=== PATIENT | male | born 1955 | race Caucasian/White ===

== ENCOUNTER → 2023-08-17 | Outpatient (REF) | payer MEDICARE ==
[2023-08-17 18:00] LABS: HEMOGLOBIN A1c 5.6 % (4.0-6.0)
[2023-08-17 18:08] LABS: ALBUMIN 4.2 G/DL (3.2-5.2); ALKALINE PHOSPHATASE 41 U/L (46-116); ALT/SGPT 39 U/L (7.0-40); AST/SGOT 29 U/L (<34); BILIRUBIN,TOTAL 0.9 MG/DL (0.3-1.2); BLOOD UREA NITROGEN 32 MG/DL (9-23); CALCIUM LEVEL 9.6 MG/DL (8.3-10.6); CARBON DIOXIDE LEVEL 29 MMOL/L (20-31); CHLORIDE LEVEL 101 MMOL/L (98-107); CHOLESTEROL LEVEL 238 MG/DL (<200); CHOLESTEROL RISK RATIO 4.95 (<5); CREATININE FOR GFR 0.97 MG/DL (0.70-1.30); GLOMERULAR FILTRATION RATE > 60.0 (>42); GLUCOSE, FASTING 100 MG/DL (74-106); LDL CHOLESTEROL 162.4 MG/DL (<100); POTASSIUM SERUM 4.4 MMOL/L (3.5-5.1); SODIUM LEVEL 139 MMOL/L (136-145); TOTAL PROTEIN 6.8 G/DL (5.7-8.2); TRIGLYCERIDES LEVEL 138 MG/DL (<150)
[2023-08-17 18:10] LABS: HEMATOCRIT 45.5 % (42.0-52.0); HEMOGLOBIN 15.4 g/dl (13.5-17.5); MEAN CORPUSCULAR HEMOGLOBIN 31.8 pg (27.0-33.0); MEAN CORPUSCULAR HGB CONC 33.8 g/dl (32.0-36.5); MEAN CORPUSCULAR VOLUME 93.8 fl (80.0-96.0); PLATELET COUNT, AUTOMATED 231 10^3/uL (150-450); RED BLOOD COUNT 4.85 10^6/uL (4.30-6.10); WHITE BLOOD COUNT 5.7 10^3/uL (4.0-10.0)
[2023-08-17 18:11] LABS: TOTAL 25(OH) VITAMIN D 16.3 NG/ML (20.0-100.0)
[2023-08-17 18:12] LABS: THYROID STIMULATING HORMONE 0.605 uIU/ML (0.55-4.78)
== END ==
LOC: M LAB REF 16:19
PROVIDERS: ATTEND Nurse Practitioner Family
DX: E55.9 Vitamin D deficiency, unspecified (principal); Z12.5 Encounter for screening for malignant neoplasm of prostate; E11.8 Type 2 diabetes mellitus with unspecified complications
CPT/HCPCS: 80053; 80061; 82306; 83036; 84443; 85027; G0103

== ENCOUNTER → 2023-09-07 | Outpatient (REF) | payer MEDICARE ==
[2023-09-07 12:47] LABS: CREATININE, URINE 21.6 MG/DL; CREATININE,RANDOM URINE 21.6 MG/DL; MALB URINE SIEMENS < 3.0 MG/L; MAU/CREAT RATIO 13.8 MCG/MG (0.0-30.0)
== END ==
LOC: M LAB REF 11:37
PROVIDERS: ATTEND Nurse Practitioner Family
DX: E11.8 Type 2 diabetes mellitus with unspecified complications (principal)

== ENCOUNTER → 2024-03-16 | Outpatient (REF) | payer MEDICARE ==
[2024-03-16 15:07] LABS: BLOOD UREA NITROGEN 31 MG/DL (9-23); CALCIUM LEVEL 9.3 MG/DL (8.3-10.6); CARBON DIOXIDE LEVEL 27 MMOL/L (20-31); CHLORIDE LEVEL 103 MMOL/L (98-107); CREATININE FOR GFR 1.02 MG/DL (0.70-1.30); GLOMERULAR FILTRATION RATE > 60.0 (>42); GLUCOSE, FASTING 138 MG/DL (74-106); POTASSIUM SERUM 3.8 MMOL/L (3.5-5.1); SODIUM LEVEL 138 MMOL/L (136-145)
[2024-03-16 15:25] LABS: HEMOGLOBIN A1c 6.6 % (4.0-6.0)
== END ==
LOC: M LAB REF 12:54
PROVIDERS: ATTEND Nurse Practitioner Family
DX: I10 Essential (primary) hypertension (principal); E11.8 Type 2 diabetes mellitus with unspecified complications

== ENCOUNTER → 2024-03-29 | Outpatient (CLI) | payer MEDICARE ==
[2024-03-29 12:26] LABS: BLOOD UREA NITROGEN 26 MG/DL (9-23); CALCIUM LEVEL 9.7 MG/DL (8.3-10.6); CARBON DIOXIDE LEVEL 27 MMOL/L (20-31); CHLORIDE LEVEL 106 MMOL/L (98-107); CREATININE FOR GFR 1.03 MG/DL (0.70-1.30); GLOMERULAR FILTRATION RATE > 60.0 (>42); GLUCOSE, FASTING 137 MG/DL (74-106); POTASSIUM SERUM 3.8 MMOL/L (3.5-5.1); SODIUM LEVEL 137 MMOL/L (136-145)
== END ==
LOC: M RAD 10:31
PROVIDERS: ATTEND Nurse Practitioner Family
DX: R60.0 Localized edema (principal)

== ENCOUNTER → 2024-05-26 | Outpatient (REF) | payer MEDICARE ==
[2024-05-26 18:26] LABS: HEMOGLOBIN A1c 6.3 % (4.0-6.0)
[2024-05-26 18:47] LABS: BLOOD UREA NITROGEN 26 MG/DL (9-23); CALCIUM LEVEL 9.5 MG/DL (8.3-10.6); CARBON DIOXIDE LEVEL 27 MMOL/L (20-31); CHLORIDE LEVEL 103 MMOL/L (98-107); GLOMERULAR FILTRATION RATE > 60.0 (>42); GLUCOSE, FASTING 113 MG/DL (74-106); POTASSIUM SERUM 4.2 MMOL/L (3.5-5.1); SODIUM LEVEL 137 MMOL/L (136-145)
== END ==
LOC: M LAB REF 16:11
PROVIDERS: ATTEND Nurse Practitioner Family
DX: E11.8 Type 2 diabetes mellitus with unspecified complications (principal); I10 Essential (primary) hypertension

== ENCOUNTER 2024-08-09 07:00 | Day surgery (SDC) | payer MEDICARE ==
[~2024-08-09] VITALS: Ht 182.9 cm; Wt 112.5 kg
[~2024-08-09 07:00] MED LIST: AMLO1TAB24 PO; FENO160T10 PO; GLIP10TA15 PO; LOSA100T5 PO; NS 250 ML IV ONE; PIOG1TAB55 PO; ROSU5TAB40 PO; SOTA120T PO; VITA200032 PO; XARE20TA PO
[2024-08-09] MEDS ORDERED: propofoL 200 MG/20 ML VIAL As Ordered ONE (08:05)
[2024-08-09] MEDS ORDERED: GLYCOPYRROLATE INJ 0.2 MG/ML 2 ML VIAL As Ordered ONE (08:05)
[2024-08-09] MEDS ORDERED: ePHEDrine SULFATE 25 MG/5 ML(5MG/ML) SYRINGE As Ordered ONE (08:12)
[2024-08-09 08:22] VITALS: TEMP 97.2
[2024-08-09 08:39] VITALS: BP 133/62; O2SAT 94
== END 2024-08-09 08:54 | disposition home or self-care (01) ==
LOC: M OPP 07:00
PROVIDERS: ATTEND Surgery
DX: Z12.11 Encounter for screening for malignant neoplasm of colon (principal); Z12.12 Encounter for screening for malignant neoplasm of rectum; D12.3 Benign neoplasm of transverse colon; K57.30 Diverticulosis of large intestine without perforation or abscess without bleeding; Z87.11 Personal history of peptic ulcer disease; I48.91 Unspecified atrial fibrillation; E11.9 Type 2 diabetes mellitus without complications; I10 Essential (primary) hypertension; E78.00 Pure hypercholesterolemia, unspecified; Z79.899 Other long term (current) drug therapy; Z79.01 Long term (current) use of anticoagulants; Z88.2 Allergy status to sulfonamides; Z88.6 Allergy status to analgesic agent; Z90.89 Acquired absence of other organs
CPT/HCPCS: 45385; 88305; J1596

== ENCOUNTER → 2024-09-12 | Outpatient (REF) | payer MEDICARE ==
[~2024-09-12] MED LIST changes: -NS 250 ML IV ONE; -ROSU5TAB40 PO; +ROSU5TAB49 PO
[2024-09-12 13:40] LABS: HEMOGLOBIN A1c 6.9 % (4.0-6.0)
== END ==
LOC: M LAB REF 12:32
PROVIDERS: ATTEND Nurse Practitioner Family
DX: E11.8 Type 2 diabetes mellitus with unspecified complications (principal)

== ENCOUNTER → 2024-09-28 | Outpatient (REF) | payer MEDICARE ==
[2024-09-28 14:08] LABS: HEMATOCRIT 45.1 % (42.0-52.0); HEMOGLOBIN 15.2 g/dl (13.5-17.5); MEAN CORPUSCULAR HEMOGLOBIN 31.1 pg (27.0-33.0); MEAN CORPUSCULAR HGB CONC 33.7 g/dl (32.0-36.5); MEAN CORPUSCULAR VOLUME 92.2 fl (80.0-96.0); PLATELET COUNT, AUTOMATED 229 10^3/uL (150-450); RED BLOOD COUNT 4.89 10^6/uL (4.30-6.10); WHITE BLOOD COUNT 5.9 10^3/uL (4.0-10.0)
[2024-09-28 14:09] LABS: ALBUMIN 3.7 G/DL (3.2-5.2); ALKALINE PHOSPHATASE 44 U/L (40-129); ALT/SGPT 34 U/L (7.0-40); AST/SGOT 27 U/L (<34); BILIRUBIN,DIRECT 0.2 MG/DL (<0.4); BILIRUBIN,TOTAL 0.5 MG/DL (0.3-1.2); BLOOD UREA NITROGEN 34 MG/DL (9-23); CALCIUM LEVEL 9.7 MG/DL (8.3-10.6); CARBON DIOXIDE LEVEL 29 MMOL/L (20-31); CHLORIDE LEVEL 101 MMOL/L (98-107); CHOLESTEROL LEVEL 180 MG/DL (<200); CREATININE FOR GFR 1.07 MG/DL (0.70-1.30); GLOMERULAR FILTRATION RATE > 60.0 (>42); GLUCOSE, FASTING 120 MG/DL (74-106); HDL CHOLESTEROL 42.8 MG/DL (>40); LDL CHOLESTEROL 114.6 MG/DL (<100); NON-HDL-C 137.2 MG/DL; POTASSIUM SERUM 4.1 MMOL/L (3.5-5.1); PROSTATIC SPECIFIC AG MONITOR 0.45 NG/ML (< 4.00); SODIUM LEVEL 140 MMOL/L (136-145); TOTAL PROTEIN 6.6 G/DL (5.7-8.2); TRIGLYCERIDES LEVEL 113 MG/DL (<150)
[2024-09-28 14:11] LABS: THYROID STIMULATING HORMONE 0.491 uIU/ML (0.55-4.78)
== END ==
LOC: M LAB REF 12:50
PROVIDERS: ATTEND Nurse Practitioner Family
DX: E11.8 Type 2 diabetes mellitus with unspecified complications (principal); E78.5 Hyperlipidemia, unspecified; E66.9 Obesity, unspecified; Z12.5 Encounter for screening for malignant neoplasm of prostate; I10 Essential (primary) hypertension

== ENCOUNTER → 2024-11-29 | Outpatient (REF) | payer MEDICARE | LOC: M LAB REF 13:18 | PROVIDERS: ATTEND Nurse Practitioner Family | DX: R89.1 Abnormal level of hormones in specimens from other organs, systems and tissues (principal) ==

== ENCOUNTER → 2024-12-21 | Outpatient (REF) | payer MEDICARE ==
[2024-12-21 19:41] LABS: CREATININE, URINE 52.6 MG/DL; MALB URINE SIEMENS < 3.0 MG/L
== END ==
LOC: M LAB REF 17:44
PROVIDERS: ATTEND Nurse Practitioner Family
DX: E11.8 Type 2 diabetes mellitus with unspecified complications (principal)

== ENCOUNTER → 2025-02-07 | Outpatient (CLI) | payer MEDICARE | LOC: M RAD 11:25 | PROVIDERS: ATTEND Physician Assistant | DX: R05.9 Cough, unspecified (principal) ==

== ENCOUNTER → 2025-06-29 | Outpatient (REF) | payer MEDICARE ==
[2025-06-29 18:12] LABS: CALCIUM LEVEL 9.6 MG/DL (8.3-10.6); CARBON DIOXIDE LEVEL 31.0 MMOL/L (20-31); CHLORIDE LEVEL 103.0 MMOL/L (98-107); CHOLESTEROL LEVEL 165.0 MG/DL (<200); CHOLESTEROL RISK RATIO 3.25 (<5); CREATININE FOR GFR 1.07 MG/DL (0.70-1.30); GLOMERULAR FILTRATION RATE 73.7 (>42); LDL CHOLESTEROL 84.1 MG/DL (<100); NON-HDL-C 114.3 MG/DL; POTASSIUM SERUM 4.5 MMOL/L (3.5-5.1); SODIUM LEVEL 141.0 MMOL/L (136-145); TRIGLYCERIDES LEVEL 151.0 MG/DL (<150)
[2025-06-29 18:36] LABS: ESTIMATED AVERAGE GLUCOSE 148.0 MG/DL (60-110)
== END ==
LOC: M LAB REF 16:18
PROVIDERS: ATTEND Nurse Practitioner Family
DX: I10 Essential (primary) hypertension (principal); E11.8 Type 2 diabetes mellitus with unspecified complications